=== PATIENT | female | born 2000 | race Hispanic/Latino ===

== ENCOUNTER 2024-06-22 04:34 | Emergency (ER) | payer OTHER ==
[~2024-06-22] VITALS: Ht 165.1 cm; Wt 81.8 kg
[2024-06-22 07:01] VITALS: BP 120/82; TEMP 97.8; O2SAT 99
== END 2024-06-22 07:02 | disposition left against medical advice (07) ==
LOC: M ED 04:34
DX: T76.21XA Adult sexual abuse, suspected, initial encounter (principal); F10.10 Alcohol abuse, uncomplicated; Z53.9 Procedure and treatment not carried out, unspecified reason